=== PATIENT | female | born 1995 | race African-American/Black ===

== ENCOUNTER 2016-12-23 15:28 | Emergency (ER) | payer OTHER ==
[~2016-12-23] VITALS: Ht 165.1 cm; Wt 90.7 kg
[~2016-12-23 15:28] MED LIST: ALBUTEROL0.09 MG/A1 INH; CLARINEX 5 MG TA5 MG PO; CLARINEX5 MG PO; CLARITIN10 MG PO; FLEXERIL10 MG PO; MEDROL DOSEPAK1 PAC PO; MOMETASONE0.05 MG/Ac NASB; NASONEX0.05 MG/Ac NAS; SINGULAIR10 MG PO
[2016-12-23 15:34] VITALS: BP 113/77
== END 2016-12-23 17:02 | disposition admitted as inpatient to this hospital (09) ==
LOC: ERH 15:28
DX: M79.631 Pain in right forearm (principal); M79.661 Pain in right lower leg

== ENCOUNTER 2017-09-16 14:10 | Emergency (ER) | payer OTHER ==
[~2017-09-16] VITALS: Ht 165.1 cm; Wt 113.4 kg
--- NOTE | 2017-09-16 15:20 | ED HEADACHE COMPLAINT ---
History of Present Illness General Chief Complaint: Headache Stated Complaint: VARELA WITH PAIN RADIATING DOWN BACK OF NECK Source: patient Exam Limitations: no limitations Vital Signs & Intake/Output Vital Signs & Intake/Output Vital Signs Date Time Temp Pulse Resp B/P B/P Pulse O2 O2 Flow FiO2 Mean Ox Delivery Rate 09/16 1534 98.1 80 16 120/78 99 Room Air 09/16 1512 Room Air 09/16 1416 98.0 88 18 116/82 99 Room Air Allergies Coded Allergies: venom-honey bee (Severe, ANAPHYLAXIS 09/16/17) Uncoded Allergies: SPIDER BITES (SWELLING 04/25/15) Reconcile Medications Cyclobenzaprine HCl 10 MG TABLET 1 TAB PO TID SPASMS Ibuprofen 800 MG TABLET 1 TAB PO TID PAIN Triage Note: PT TO ED FOR A SHARP PAIN TO HER HEAD X 6 WEEKS. STATES SHE WENT TO [facility] MULTIPLE TIMES FOR SAME BUT SHE WANTS A SECOND OPINION "BECAUSE THEY DIDN'T DO XRAYS OF MY HEAD" Triage Nurses Notes Reviewed? yes Onset: Gradual Duration: 3-4 months Timing: recent history Quality/Severity: moderate No Modifying Factors: none : No Patient currently breastfeeds: No HPI: 22-year-old female comes into the emergency room for further evaluation of headache since been going on for the past 3-4 months. She reports the headache she was down into her neck. She denies any vomiting. She denies any vision loss. Denies any traumas to her head. Patient was seen at [facility] a few times. She also is requesting a test. She denies trying to actually get . Denies any other associated symptoms. Comes in for further evaluation. Past History Travel History Traveled to [place] past 21 day No Medical History Any Pertinent Medical History? 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 No Review of Systems Review of Systems Constitutional: Reports: no symptoms. Eyes: Reports: no symptoms. Ears, Nose, Throat, Mouth: Reports: no symptoms. Respiratory: Reports: no symptoms. Cardiovascular: Reports: no symptoms. Gastrointestinal/Abdominal: Reports: no symptoms. Genitourinary: Reports: see HPI. Musculoskeletal: Reports: no symptoms. Skin: Reports: no symptoms. Neurological/Psychological: Reports: see HPI. Hematologic/Endocrine: Reports: no symptoms. Endocrine: Reports: no symptoms. Immunologic/Allergic: Reports: no symptoms. All Other Systems: Reviewed and Negative Physical Exam Physical Exam General Appearance: well developed/nourished, alert, awake Head: atraumatic, normal appearance Eyes: Bilateral: normal appearance, EOMI. Ears, Nose, Throat: normal ENT inspection, hearing grossly normal Neck: normal inspection, full range of motion, paraspinal tenderness bilaterally Respiratory: normal breath sounds, no respiratory distress Cardiovascular: regular rate/rhythm Extremities: normal inspection Psychiatric: awake Cranial Nerves: normal hearing, normal speech, PERRL Coordination/Gait: normal gait Motor/Sensory: no motor/sensory deficits Skin: intact, normal color Core Measures Sepsis Present: No Sepsis Focused Exam Completed? No Progress Differential Diagnosis: carotid dissection, cav sinus thromb, cluster VARELA, encephalitis, IC mass/tumor, intracranial Hem., meningitis, migraine VARELA, musculoskeletal pain, sinusitis, SSS thrombosis, subarach. Hem., tension VARELA, viral cephalgia Plan of Care: Orders Procedure Date/time Status URINE 09/16 1514 Complete Laboratory Tests 09/16/17 1515: Urine Test NEGATIVE Comments: 09/16/2017 4:22:37 PM Shared decision making. CT scan was offered to the patient but I did not feel it was necessary at this moment an outpatient MRI would be more appropriate and get more information. Patient can follow-up with her PCP. Patient understands and agrees with my plan of care. She elected to not get the CAT scan of her head. She neurologically appears intact with no acute findings. She has been resting comfortably on stretcher with her Departure Departure Disposition: HOME OR SELF CARE Condition: Stable Clinical Impression Primary Impression: Headache Referrals: Ginette Morrison MD (PCP/Family) Additional Instructions: Take Flexeril and ibuprofen as prescribed. Follow-up with your primary care doctor for outpatient MRI of brain if your symptoms persist. Return if any other concerns worsening symptoms. Please go over all results of today's visit with your primary care doctor. Contact your primary care doctor to let them know you were here in the emergency room. There may be nonspecific findings which may not be related to your visit today here in the emergency room but may require further evaluation and chronic monitoring by your primary care doctor. If you had a laceration today the chance of foreign body always remains. You should follow-up with your primary care doctor for recheck in 3-5 days for a wound check. If you had an x-ray done there is a chance that a fracture could have been missed on initial read and you should follow-up with your primary care doctor for repeat x-rays if symptoms persist. If your blood pressure was elevated here in the emergency room please have rechecked by [facility] primary care doctor within the next 48. If you were prescribed a narcotic here in the emergency room or any type of controlled substances you're not allowed to drive while taking this medication or operate any type of heavy machinery. Narcotics can make you feel lightheaded dizziness nausea and can cause constipation. 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 Thank you for choosing [facility] emergency room. Please return to the emergency room immediately if you have any other concerns worsening of symptoms. Departure Forms: Customer Survey General Discharge Information Prescriptions: Current Visit Scripts Cyclobenzaprine HCl 1 TAB PO TID #20 TAB Ibuprofen 1 TAB PO TID #30 TAB
[2017-09-16] MEDS ORDERED: IBUPROFEN800 M1 PO (15:23)
[2017-09-16] MEDS ORDERED: CYCLOBENZAPRINE10 M1 PO (15:23)
[2017-09-16 15:34] VITALS: BP 120/78
== END 2017-09-16 15:34 ==
LOC: ERH 14:10
DX: R51 Headache (principal)
CPT/HCPCS: 81025